=== PATIENT | female | born 1935 | race Caucasian/White ===

== ENCOUNTER 2020-10-28 19:01 | Emergency (ER) | payer BC, OTHER ==
[~2020-10-28] VITALS: Ht 167.6 cm; Wt 63.5 kg
[2020-10-28] MEDS ORDERED: SODIUM CHLORIDE 0.9% 500 ML IV ONE ×2 (19:30→23:00)
[2020-10-28 20:42] LABS: Hematocrit 38.8 % (36.0-46.0); Hemoglobin 12.9 g/dL (12.2-16.2); Mean Corpuscular Hemoglobin 31.9 pg (28.0-32.0); Mean Corpuscular Hgb Conc. 33.3 g/dL (32.0-36.0); Mean Corpuscular Volume 95.7 fL (80.0-100.0); Red Blood Cells 4.05 10^6/uL (4.0-5.20); Red Cell Distribution Width 15.1 % (11.8-14.3); White Blood Cell 24.2 10^3/uL (4.4-10.8)
[2020-10-28 20:48] LABS: Basophils % (manual) 0 (0.0-2.0); Blast Cells 0; Eosinophils % (manual) 0 (0-7); Metamyelocytes % 0; Myelocytes % 0; Promyelocytes % 0; Reactive Lymphocytes 0
[2020-10-28 20:52] LABS: Urine WBC None Seen /hpf (0 - 5)
[2020-10-28 20:57] LABS: BUN/Creatinine Ratio 11.4; Potassium 4.2 mmol/L (3.5-5.1)
[2020-10-28 20:59] LABS: Lactic Acid w/Reflex 3.4 mmol/L (0.4-2.0)
[2020-10-28 21:29] LABS: Urine Bacteria NONE SEEN /hpf (None Seen); Urine Blood Negative /uL (Negative); Urine Hyaline Cast MOD /lpf (0 - 2); Urine Mucus FEW (None Seen); Urine Specific Gravity 1.017 (1.001-1.035)
[2020-10-28 21:44] LABS: Band Neutrophils % (manual) 38; Lymphocytes % (manual) 2 (10.0-50.0); Monocytes % (manual) 4 (0-12)
[2020-10-29] MEDS ORDERED: MEROPENEM 1GM IVPB 100 ML IV ONE (01:11)
[2020-10-29] MEDS ORDERED: PATIENTS OWN MEDICATION (MEROPENEM 1 G) IV SCH (01:30)
[2020-10-29] MEDS ORDERED: MEROPENEM 1GM IVPB 50 ML IV SCH (01:30)
[2020-10-29] MEDS ORDERED: SODIUM CHLORIDE 0.9% 500 ML IV ONE (02:45)
[2020-10-29] MEDS ORDERED: HYDROCORTISONE SOD SUCC 100 MG/2ML INJ VIAL IV ONE (03:00)
[2020-10-29] MEDS ORDERED: ALBUMIN 5% 250 ML IV ONE (04:30)
[2020-10-29 05:54] VITALS: BP 108/60
== END 2020-10-29 06:07 | disposition short-term general hospital (02) ==
LOC: EDBD 19:01 → ER 19:01
DX: K83.09 Other cholangitis (principal); E78.5 Hyperlipidemia, unspecified; Z20.822 Contact with and (suspected) exposure to COVID-19
CPT/HCPCS: 36415; 74176; 76705; 80048; 81001; 82962; 83605; 84443; 85007; 85027; 87040; 87086; 87426; 96361; 96365; 99285; J1720; J2185; J7040; P9045